=== PATIENT | female | born 1965 | race Caucasian/White ===

== ENCOUNTER 2020-04-30 08:24 | Inpatient (IN) | payer BC ==
[~2020-04-30] VITALS: Ht 160 cm; Wt 79.0 kg
[2020-04-30] MEDS ORDERED: LACTATED RINGERS 1,000 ML IV SCH (09:08)
[2020-04-30 09:11] VITALS: BP 119/85
[2020-04-30] MEDS ORDERED: CHLORHEXIDINE 15 ML UDC MM ONE (09:30)
[2020-04-30] MEDS ORDERED: LIDOCAINE-MPF 1%, 2ML INFIL ONE (09:30)
[2020-04-30] MEDS ORDERED: VENL150C PO (09:46)
[2020-04-30] MEDS ORDERED: DEXA1.5T26 PO (09:46)
[2020-04-30] MEDS ORDERED: OXYC10TA47 PO (09:46)
[2020-04-30] MEDS ORDERED: OXYC20TA42 PO (09:46)
[2020-04-30] MEDS ORDERED: BACL20TA PO (09:46)
[2020-04-30] MEDS ORDERED: CHOL10003 PO (09:50)
[2020-04-30] MEDS ORDERED: TAMO10TA6 PO (09:50)
[2020-04-30] MEDS ORDERED: VITA1TAB29 PO (09:50)
[2020-04-30] MEDS ORDERED: GLUC500T11 PO (09:50)
[2020-04-30] MEDS ORDERED: OXYcodone IR 5MG TABLET PO ONE (10:30)
[2020-04-30] MEDS ORDERED: GABAPENTIN 300 MG CAPSULE PO ONE (10:30)
[2020-04-30] MEDS ORDERED: ACETAMINOPHEN 500 MG TABLET PO ONE (10:30)
[2020-04-30] MEDS: SCOPOLAMINE 1MG PATCH TD SCH ×2 (10:36→17:59)
[2020-04-30] MEDS ORDERED: FENTANYL PF 250 MCG/5ML ONE (11:11)
[2020-04-30] MEDS ORDERED: MIDAZOLAM 1 MG/ML, 2ML ONE (11:11)
[2020-04-30] MEDS ORDERED: BACITRACIN 50,000 UNIT ONE (11:31)
[2020-04-30] MEDS ORDERED: THROMBIN 20,000 UNIT VIAL TP ONE (11:31)
[2020-04-30] MEDS ORDERED: BUPIVACAINE/PF-EPI 0.5% 1:200K ONE (11:31)
[2020-04-30] MEDS ORDERED: CEFAZOLIN 1,000 MG ONE (12:01)
[2020-04-30] MEDS ORDERED: DEXAMETHASONE 4 MG/ML, 1ML ONE (12:01)
[2020-04-30] MEDS ORDERED: SUCCINYLCHOLINE 20 MG/ML, 10ML ONE (12:01)
[2020-04-30] MEDS ORDERED: ONDANSETRON 2MG/ML, 2ML ONE (12:01)
[2020-04-30] MEDS ORDERED: ROCURONIUM 10 MG/ML,10ML ONE (12:01)
[2020-04-30] MEDS ORDERED: PROPOFOL 10 MG/ML, 20ML ONE (12:01)
[2020-04-30] MEDS ORDERED: BUPIVACAINE/PF-EPI 0.5% 1:200K IM ONE (12:55)
[2020-04-30] MEDS ORDERED: PROMETHAZINE 25 MG/ML, 1ML IV PRN (13:00)
[2020-04-30] MEDS ORDERED: ONDANSETRON 2MG/ML, 2ML IVPush PRN (13:00)
[2020-04-30] MEDS ORDERED: DIAZEPAM 5 MG/ML, 2ML IV PRN ×2 (13:00)
[2020-04-30] MEDS ORDERED: OXYcodone 5 MG/5 ML ORAL.SOL UDC PO PRN (13:00)
[2020-04-30] MEDS ORDERED: hydrALAzine 20 MG/ML, 1ML IV PRN (13:00)
[2020-04-30] MEDS ORDERED: LABETALOL 5MG/ML, 20ML IV PRN ×2 (13:00→18:30)
[2020-04-30] MEDS ORDERED: KETOROLAC 30 MG/1 ML IV PRN (13:00)
[2020-04-30] MEDS ORDERED: MEPERIDINE/PF 25MG/0.5ML IVPush PRN (13:00)
[2020-04-30] MEDS ORDERED: METOCLOPRAMIDE 5 MG/ML, 2ML IV PRN (13:00)
[2020-04-30] MEDS ORDERED: ALBUTEROL SULFATE 2.5 MG/3 ML NPPB PRN (13:00)
[2020-04-30] MEDS ORDERED: FENTANYL PF 100 MCG/2ML IV PRN (13:00)
[2020-04-30] MEDS: HYDROmorphone 1 MG/ML, 1ML INJ IV PRN ×2 (16:01→16:16)
[2020-04-30] MEDS ORDERED: HYDROmorphone 2 MG/ML, 1ML ONE (16:15)
[2020-04-30] MEDS ORDERED: HYDROmorphone PCA 30 MG/30 ML IV PRN ×3 (16:30→18:30)
[2020-04-30] MEDS ORDERED: METHOCARBAMOL 1,000 MG in DEXTROSE 5% 100 ML IV ONE (16:30)
[2020-04-30] MEDS ORDERED: DIPHENHYDRAMINE 25 MG CAPSULE PO PRN (18:00)
[2020-04-30] MEDS ORDERED: DEXAMETHASONE 4 MG/ML, 1ML IV PRN (18:00)
[2020-04-30] MEDS ORDERED: DIPHENHYDRAMINE 50 MG/ML, 1ML IM PRN (18:30)
[2020-04-30] MEDS ORDERED: DIPHENHYDRAMINE 50 MG/ML, 1ML IVPush PRN (18:30)
[2020-04-30] MEDS ORDERED: BISACODYL 10 MG SUPP PR PRN (18:30)
[2020-04-30] MEDS ORDERED: CEFAZOLIN PMX 1GM/50ML 50 ML IVPB SCH (18:30)
[2020-04-30] MEDS ORDERED: MAGNESIUM HYDROXIDE 8%, 30ML UDC PO PRN (18:30)
[2020-04-30] MEDS ORDERED: ONDANSETRON 2MG/ML, 2ML IV PRN (18:30)
[2020-04-30 19:54] VITALS: BP 119/78
[2020-04-30] MEDS: CEFAZOLIN PMX 1GM/50ML 50 ML IVPB SCH (20:35)
[2020-04-30] MEDS: TAMOXIFEN 10 MG TABLET PO SCH (20:35)
[2020-04-30] MEDS: NS + 20MEQ KCL 1,000 ML IV SCH (20:35)
[2020-04-30] MEDS: BACLOFEN 10 MG TABLET PO SCH (20:36)
[2020-04-30] MEDS: VENLAFAXINE 75 MG CAP ER PO SCH (20:36)
[2020-04-30] MEDS ORDERED: ZOLPIDEM 5MG TABLET PO PRN (21:00)
[2020-05-01 00:17] VITALS: BP 108/76
[2020-05-01] MEDS: METHOCARBAMOL 750 MG in DEXTROSE 5% 100 ML IV SCH ×3 (00:25→16:29)
[2020-05-01 04:14] VITALS: BP 93/61
[2020-05-01] MEDS: CEFAZOLIN PMX 1GM/50ML 50 ML IVPB SCH ×2 (04:14→12:09)
[2020-05-01 05:49] LABS: BASOPHILS # (AUTO) 0.02 x10^3/uL (0-0.1); BASOPHILS % (AUTO) 0 % (0-1); EOSINOPHILS # (AUTO) 0.15 x10^3/uL (0-0.4); EOSINOPHILS % (AUTO) 2 % (1-7); LYMPHOCYTES # (AUTO) 1.37 x10^3/uL (1-3.4); LYMPHOCYTES % (AUTO) 18 % (22-44); MD NO; MEAN CORPUSCULAR HEMOGLOBIN 30.1 pg (27.0-34.8); MEAN CORPUSCULAR HGB CONC 32.7 g/dL (32.4-35.8); MEAN CORPUSCULAR VOLUME 91.9 fL (80-100); MONOCYTES # (AUTO) 0.52 x10^3/uL (0.2-0.8); MONOCYTES % (AUTO) 7 % (2-9); NEUTROPHILS % (AUTO) 72 % (42-75); PLATELET COUNT 190 x10^3/uL (130-400); RED BLOOD COUNT 4.11 x10^6/uL (3.82-5.3); RED CELL DISTRIBUTION WIDTH 15.9 % (9.6-15.2)
[2020-05-01 05:51] LABS: ANION GAP 5 mmol/L (5-15); CALCIUM 7.9 mg/dL (8.5-10.1); CHLORIDE 105 mmol/L (98-107)
[2020-05-01 05:53] LABS: CREATININE 0.77 mg/dL (0.55-1.02)
[2020-05-01 07:00] VITALS: BP 100/64
[2020-05-01] MEDS: GLUCOSAMINE HCL 500 MG HOMEMEDPO SCH (07:59)
[2020-05-01] MEDS: TAMOXIFEN 10 MG TABLET PO SCH ×2 (08:00→21:53)
[2020-05-01] MEDS: BACLOFEN 10 MG TABLET PO SCH ×3 (08:00→21:53)
[2020-05-01] MEDS: CHOLECALCIFEROL 1,000 UNIT TABLET PO SCH (08:01)
[2020-05-01] MEDS: MULTIVITS,STRESS FORMULA 1 TABLET PO SCH (08:01)
[2020-05-01] MEDS: SENNA/DOCUSATE TABLET PO SCH (08:01)
[2020-05-01] MEDS: VENLAFAXINE 75 MG CAP ER PO SCH ×2 (08:03→21:53)
[2020-05-01] MEDS: NS + 20MEQ KCL 1,000 ML IV SCH ×2 (08:03→19:49)
[2020-05-01 14:12] VITALS: BP 105/72
[2020-05-01 19:50] VITALS: BP 97/61
[2020-05-01] MEDS: OXYcodone IR 5MG TABLET PO PRN (21:53)
[2020-05-02] MEDS: METHOCARBAMOL 750 MG in DEXTROSE 5% 100 ML IV SCH ×3 (00:49→16:45)
[2020-05-02] MEDS: OXYcodone IR 5MG TABLET PO PRN ×6 (02:02→22:35)
[2020-05-02 02:08] VITALS: BP 94/59
[2020-05-02] MEDS: NS + 20MEQ KCL 1,000 ML IV SCH ×2 (03:57→20:12)
[2020-05-02 05:54] LABS: BASOPHILS # (AUTO) 0.02 x10^3/uL (0-0.1); BASOPHILS % (AUTO) 0 % (0-1); EOSINOPHILS # (AUTO) 0.05 x10^3/uL (0-0.4); EOSINOPHILS % (AUTO) 1 % (1-7); LYMPHOCYTES # (AUTO) 1.03 x10^3/uL (1-3.4); LYMPHOCYTES % (AUTO) 12 % (22-44); MD NO; MEAN CORPUSCULAR HEMOGLOBIN 30.1 pg (27.0-34.8); MEAN CORPUSCULAR HGB CONC 32.8 g/dL (32.4-35.8); MEAN CORPUSCULAR VOLUME 91.8 fL (80-100); MEAN PLATELET VOLUME 7.9 fL (7.4-10.4); MONOCYTES % (AUTO) 7 % (2-9); NEUTROPHILS % (AUTO) 81 % (42-75); PLATELET COUNT 182 x10^3/uL (130-400); RED BLOOD COUNT 4.24 x10^6/uL (3.82-5.3); RED CELL DISTRIBUTION WIDTH 15.7 % (9.6-15.2)
[2020-05-02] MEDS: VENLAFAXINE 75 MG CAP ER PO SCH ×2 (06:30→21:00)
[2020-05-02 07:09] VITALS: BP 96/61
[2020-05-02] MEDS: GLUCOSAMINE HCL 500 MG HOMEMEDPO SCH (08:56)
[2020-05-02] MEDS: CHOLECALCIFEROL 1,000 UNIT TABLET PO SCH (08:57)
[2020-05-02] MEDS: TAMOXIFEN 10 MG TABLET PO SCH ×2 (08:57→21:00)
[2020-05-02] MEDS: MULTIVITS,STRESS FORMULA 1 TABLET PO SCH (08:57)
[2020-05-02] MEDS: SENNA/DOCUSATE TABLET PO SCH (08:57)
[2020-05-02] MEDS: BACLOFEN 10 MG TABLET PO SCH ×3 (09:01→20:46)
[2020-05-02 13:21] VITALS: BP 91/59
[2020-05-02 20:08] VITALS: BP 97/65
[2020-05-02] MEDS: POLYETHYLENE GLYCOL 17 GM PACKET NG SCH (21:00)
[2020-05-03] MEDS: METHOCARBAMOL 750 MG TABLET PO SCH ×2 (00:55→07:33)
[2020-05-03 01:00] VITALS: BP 90/58
[2020-05-03] MEDS: OXYcodone IR 5MG TABLET PO PRN ×3 (02:42→11:43)
[2020-05-03 05:35] LABS: BASOPHILS # (AUTO) 0.01 x10^3/uL (0-0.1); BASOPHILS % (AUTO) 0 % (0-1); EOSINOPHILS # (AUTO) 0.07 x10^3/uL (0-0.4); EOSINOPHILS % (AUTO) 1 % (1-7); LYMPHOCYTES # (AUTO) 0.77 x10^3/uL (1-3.4); LYMPHOCYTES % (AUTO) 9 % (22-44); MD NO; MEAN CORPUSCULAR HEMOGLOBIN 30.3 pg (27.0-34.8); MEAN CORPUSCULAR HGB CONC 33.2 g/dL (32.4-35.8); MEAN CORPUSCULAR VOLUME 91.4 fL (80-100); MEAN PLATELET VOLUME 8.1 fL (7.4-10.4); MONOCYTES # (AUTO) 0.53 x10^3/uL (0.2-0.8); MONOCYTES % (AUTO) 6 % (2-9); NEUTROPHILS # (AUTO) 7.28 x10^3/uL (1.8-6.8); NEUTROPHILS % (AUTO) 84 % (42-75); PLATELET COUNT 168 x10^3/uL (130-400); RED BLOOD COUNT 3.63 x10^6/uL (3.82-5.3); RED CELL DISTRIBUTION WIDTH 15.4 % (9.6-15.2)
[2020-05-03] MEDS: VENLAFAXINE 75 MG CAP ER PO SCH (07:33)
[2020-05-03] MEDS: BACLOFEN 10 MG TABLET PO SCH (07:33)
[2020-05-03] MEDS: SENNA/DOCUSATE TABLET PO SCH (07:34)
[2020-05-03] MEDS: NS + 20MEQ KCL 1,000 ML IV SCH (07:34)
[2020-05-03] MEDS: POLYETHYLENE GLYCOL 17 GM PACKET NG SCH (07:34)
[2020-05-03] MEDS: GLUCOSAMINE HCL 500 MG HOMEMEDPO SCH (07:34)
[2020-05-03] MEDS: TAMOXIFEN 10 MG TABLET PO SCH (07:35)
[2020-05-03] MEDS: CHOLECALCIFEROL 1,000 UNIT TABLET PO SCH (07:35)
[2020-05-03] MEDS: MULTIVITS,STRESS FORMULA 1 TABLET PO SCH (07:35)
[2020-05-03 07:40] VITALS: BP 110/72
[2020-05-03] MEDS ORDERED: METH750T87 PO (12:15)
[2020-05-03] MEDS ORDERED: MAGN400O7 PO (12:18)
[2020-05-03 13:12] VITALS: BP 103/68
== END 2020-05-03 13:42 | disposition home or self-care (01) | DRG 455 ==
LOC: ORIP 08:24 → 4NE 17:18
PROVIDERS: ADMIT Neurological Surgery; ATTEND Neurological Surgery
PROC: 0SG00K1 Fusion of Lumbar Vertebral Joint with Nonautologous Tissue Substitute, Posterior Approach, Posterior Column, Open Approach (ICD-10-PCS; 2020-04-30)
PROC: 01NB0ZZ Release Lumbar Nerve, Open Approach (ICD-10-PCS; 2020-04-30)
PROC: 0PS43ZZ Reposition Thoracic Vertebra, Percutaneous Approach (ICD-10-PCS; 2020-04-30)
PROC: 0PU43JZ Supplement Thoracic Vertebra with Synthetic Substitute, Percutaneous Approach (ICD-10-PCS; 2020-04-30)
PROC: 0PB43ZX Excision of Thoracic Vertebra, Percutaneous Approach, Diagnostic (ICD-10-PCS; 2020-04-30)
PROC: 4A11X4G Monitoring of Peripheral Nervous Electrical Activity, Intraoperative, External Approach (ICD-10-PCS; 2020-04-30)
PROC: 0SG00AJ Fusion of Lumbar Vertebral Joint with Interbody Fusion Device, Posterior Approach, Anterior Column, Open Approach (ICD-10-PCS; principal; 2020-04-30 11:00)
DX: M48.061 Spinal stenosis, lumbar region without neurogenic claudication (principal); M48.04 Spinal stenosis, thoracic region; M43.10 Spondylolisthesis, site unspecified; Z85.3 Personal history of malignant neoplasm of breast; Z88.0 Allergy status to penicillin; Z88.8 Allergy status to other drugs, medicaments and biological substances; Z79.899 Other long term (current) drug therapy
CPT/HCPCS: 36415; 72072; 72100; 80048; 85025; 86850; 86900; 88307; 88311; 95938; 95941; C1713; C1776; G0378; J0690; J1100; J1170; J2250; J2405; J2704; J3010; J3480; C1762; C1763; C1886; J0330; J2800